=== PATIENT | male | born 1950 | race Caucasian/White ===

== ENCOUNTER 2017-09-05 05:38 | Day surgery (SDC) | payer MEDICARE ==
[2017-08-28 11:19] LABS: BASOPHILS % (AUTO) 0.5 % (0-1); EOSINOPHILS # (AUTO) 0.2 X10'3 (0-0.9); EOSINOPHILS % (AUTO) 2.9 % (0-6); LYMPHOCYTES # (AUTO) 1.9 X10'3 (1.1-4.8); LYMPHOCYTES % (AUTO) 36.1 % (21-51); MEAN CORPUSCULAR HEMOGLOBIN 30.5 PG (27.0-31.0); MEAN CORPUSCULAR HGB CONC 35.2 % (33.0-36.5); MEAN CORPUSCULAR VOLUME 86.9 FL (78-98); MEAN PLATELET VOLUME 7.1 FL (7.4-10.4); MONOCYTES # (AUTO) 0.4 X10'3 (0-0.9); MONOCYTES % (AUTO) 7.9 % (2-12); NEUTROPHILS # (AUTO) 2.8 X10'3 (1.8-7.7); NEUTROPHILS % (AUTO) 52.6 % (42-75); PRE OP HEMATOCRIT 40.7 % (42.0-52.0); PRE OP HEMOGLOBIN 14.3 g/dL (14.0-17.9); PRE OP PLATELET COUNT 200 X10'3 (140-440); RED BLOOD COUNT 4.68 X10'6 (4.70-6.10); RED CELL DISTRIBUTION WIDTH 13.5 % (11.5-14.5)
[2017-08-28 11:35] LABS: ALBUMIN 3.8 G/DL (3.4-5.0); ALBUMIN/GLOBULIN RATIO 1.2 (1.1-1.5); ALKALINE PHOSPHATASE 84 IU/L (46-116); BLOOD UREA NITROGEN 19 MG/DL (7-18); BUN/CREATININE RATIO 23.8 (5.4-32.0); CALCIUM 9.1 MG/DL (8.5-10.1); CHLORIDE 107 MMOL/L (99-107); PRE OP ALT 39 U/L (30-65); PRE OP ANION GAP 7 (8-16); PRE OP AST 16 U/L (10-37); PRE OP BILIRUB, TOTAL 0.5 MG/DL (0.0-1.0); PRE OP GLUCOSE 153 MG/DL (70-104); PRE OP POTASSIUM 4.4 MMOL/L (3.4-5.1); PRE OP SODIUM 142 MMOL/L (135-145); TOTAL CARBON DIOXIDE 28.2 MMOL/L (24-32); eGFR > 90 ML/MIN
[2017-09-05] VITALS (11 sets, daily range): BP systolic 119–171; BP diastolic 58–83
[~2017-09-05] VITALS: Ht 185.4 cm; Wt 144.0 kg
[~2017-09-05 05:38] MED LIST: AMIO100T4 PO; BACL10TA PO; CHOL2000 PO; Cefazolin 2GM/100ML NS IVPB IV ONE; DOCUMENT DATE & TIME OF BETA-BLOCKER PO ONE; FENO145T36 PO; GABA-532 PO; HYDR-3972 PO; LISI10TA4 PO; MELO15TA13 PO; METF1000 PO; METO50TA7 PO; TEMA30CA5 PO; famotidine 20mg tablet PO ONE; ringers solution, lacted 1,000 ML IV SCH
[2017-09-05] MEDS ORDERED: LIDOcaine 1% (10mg/ml) 2ml vial ONE (06:00)
[2017-09-05] MEDS ORDERED: LIRA0.6P2 SUBCUT (06:09)
[2017-09-05] MEDS ORDERED: triamcinolone acetonide 40mg/ml inj ONE (06:29)
[2017-09-05] MEDS ORDERED: BUPIVAcaine/PF 7.5mg/ml (0.75%) 10ml vial ONE (06:29)
[2017-09-05] MEDS ORDERED: midazolam 2 mg/2 ml injection ONE (06:56)
[2017-09-05] MEDS ORDERED: fentaNYL /PF 50mcg/ml 5ml ampule ONE (07:07)
[2017-09-05] MEDS ORDERED: rocuronium 10mg/ml inj IV ONE (07:10)
[2017-09-05] MEDS ORDERED: propofol inj 20 ML IV ONE ×2 (07:10)
[2017-09-05] MEDS ORDERED: meperidine/PF 50mg/ml syringe ONE (07:33)
[2017-09-05] MEDS ORDERED: phenylephrine 10mg/ml inj IV ONE (07:44)
[2017-09-05] MEDS ORDERED: ondansetron/PF 4mg/2ml inj ONE (07:45)
[2017-09-05] MEDS ORDERED: ringers solution, lacted 1,000 ML IV SCH (07:51)
[2017-09-05] MEDS ORDERED: fentaNYL/PF 50MCG/1 ML 2ML syringe IV PRN ×2 (07:55)
[2017-09-05] MEDS ORDERED: HYDROmorphone inj. 0.5 MG/0.5 ML DISP.SYRIN IV PRN ×2 (07:55)
[2017-09-05] MEDS ORDERED: acetaminophen 1,000mg/100ml IV 100 ML IV PRN (07:55)
[2017-09-05] MEDS ORDERED: ketorolac trometh. 30mg/ml inj. IV ONE (07:55)
[2017-09-05] MEDS ORDERED: ondansetron/PF 4mg/2ml inj IV PRN (07:55)
[2017-09-05] MEDS ORDERED: proCHLORperazine 10 MG/2 ml inj IV PRN (07:55)
[2017-09-05] MEDS ORDERED: hydrALAZINE 20mg/ml inj. IV PRN (07:55)
[2017-09-05] MEDS ORDERED: labetalol 20mg/4ml (5mg/ml) syringe IV PRN (07:55)
[2017-09-05] MEDS ORDERED: meperidine/PF 25mg/ml syringe IV PRN ×2 (07:55)
== END 2017-09-05 09:50 | disposition home or self-care (01) ==
LOC: PAS 05:38
PROVIDERS: ATTEND Orthopaedic Surgery
DX: S83.241A Other tear of medial meniscus, current injury, right knee, initial encounter (principal); S83.282A Other tear of lateral meniscus, current injury, left knee, initial encounter; S83.511A Sprain of anterior cruciate ligament of right knee, initial encounter; M94.261 Chondromalacia, right knee; G89.4 Chronic pain syndrome; M19.071 Primary osteoarthritis, right ankle and foot; E11.69 Type 2 diabetes mellitus with other specified complication; M17.12 Unilateral primary osteoarthritis, left knee; M17.11 Unilateral primary osteoarthritis, right knee; I10 Essential (primary) hypertension; E66.01 Morbid (severe) obesity due to excess calories; Z68.41 Body mass index [BMI] 40.0-44.9, adult; I48.91 Unspecified atrial fibrillation; Z96.652 Presence of left artificial knee joint; X58.XXXA Exposure to other specified factors, initial encounter; Y93.89 Activity, other specified; Y92.89 Other specified places as the place of occurrence of the external cause; Y99.8 Other external cause status; Z82.3 Family history of stroke; Z80.9 Family history of malignant neoplasm, unspecified; Z79.84 Long term (current) use of oral hypoglycemic drugs; Z79.899 Other long term (current) drug therapy
CPT/HCPCS: 29873; 29879; 29880; 36415; 80053; 82948; 85025; 93005; A6449; J0131; J0690; J1885; J2175; J2250; J2370; J2405; J2704; J3010; J3301; J3490; J7030; J7120; A6250; A7000